=== PATIENT | female | born 1975 | race Caucasian/White ===

== ENCOUNTER 2017-03-31 13:25 | Emergency (ER) | payer SELFPAY ==
[~2017-03-31 13:25] MED LIST: Sodium Chloride Irrig Solution 250 ML BOT ONE; Sterile Water Irrigation 250 ML BOT ONE
[2017-03-31] MEDS ORDERED: Lidocaine 1% w/Epinephrine 1:100K 20 ML VIAL ONE (14:29)
[2017-03-31] MEDS ORDERED: Bacitracin Zinc 1 Packet ONE (16:02)
[2017-03-31] MEDS ORDERED: HYDROcodone/Acetaminophen 10/325 mg Tablet ONE (16:22)
== END 2017-03-31 16:30 | disposition home or self-care (01) ==
LOC: MADERS 13:25
DX: S11.91XA Laceration without foreign body of unspecified part of neck, initial encounter (principal); S31.119A Laceration without foreign body of abdominal wall, unspecified quadrant without penetration into peritoneal cavity, initial encounter; F17.210 Nicotine dependence, cigarettes, uncomplicated; W54.0XXA Bitten by dog, initial encounter
CPT/HCPCS: 12002; 12041; 12051; J2001

== ENCOUNTER 2017-08-12 18:16 | Emergency (ER) | payer SELFPAY ==
[2017-08-12 19:49] LABS: Pregnancy Test - Urine (BHCG) Negative (Negative); Pregu Control Background? CLEAR/WHITE (CLR/WHITE); Pregu Control Bar Appear? YES (CONTROL BAR)
[2017-08-12] MEDS ORDERED: Gabapentin 100 MG CAP ONE (19:56)
[2017-08-12] MEDS ORDERED: Ibuprofen 800 MG TAB ONE (19:56)
[2017-08-12] MEDS ORDERED: Diazepam 5 MG TAB ONE (19:56)
[2017-08-12] MEDS ORDERED: HYDROcodone/Acetaminophen 5/325 mg Tablet ONE (19:56)
== END 2017-08-12 20:01 | disposition home or self-care (01) ==
LOC: MADERS 18:16
DX: T14.8XXA Other injury of unspecified body region, initial encounter (principal); M79.2 Neuralgia and neuritis, unspecified; F17.210 Nicotine dependence, cigarettes, uncomplicated
CPT/HCPCS: 81025; 99284